=== PATIENT | female | born 1945 | race Caucasian/White ===

== ENCOUNTER 2016-05-18 10:47 | Inpatient (IN) | payer MEDICARE, OTHER ==
[~2016-05-18] VITALS: Ht 158.8 cm; Wt 50.9 kg
[~2016-05-18 10:47] MED LIST: ACCU-CHEK1 EAC1 MC; ALENDRONATE SOD35 MG PO; COZAAR100 MG PO; DIFLUCAN100 MG PO; DULCOLAX5 MG PO; GLUCOPHAGE500 MG PO; HUMALOG100 UNIT/1 SQ; HYDROCODON-ACE1 EAC6 PO; ISOSORBIDE MONO60 MG PO; JANUVIA100 MG PO; LEVAQUIN500 MG PO; LEVEMIR100 UNIT/1 SQ; LYRICA50 MG PO; NEURONTIN400 MG PO; PAXIL20 MG PO; PEPCID20 MG PO; ROBAXIN500 MG PO; SULINDAC150 MG PO; SYNTHROID50 MCG PO; ZOCOR20 MG PO
[2016-05-18 11:17] LABS: BASO % 0.3 % (0.1-1.2); EOS # 0.1 10_X3_uL (0.0-0.4); EOS % 0.5 % (0.7-5.8); GRAN # 8.7 10_X3_uL (1.6-6.1); GRAN % 75.7 % (34.0-71.1); HEMATOCRIT 44.7 % (34-45); HEMOGLOBIN 14.7 g/dL (11.2-15.7); LYMPH # 1.8 10_X3_uL (1.2-3.7); LYMPH % 15.4 % (19.3-51.7); MEAN CORPUSCULAR HEMOGLOBIN 29.5 pg (27.0-33.0); MEAN CORPUSCULAR HGB CONC 32.9 g/dL (32.0-36.0); MEAN CORPUSCULAR VOLUME 89.6 fL (79-95); MEAN PLATELET VOLUME 9.1 fl (7.5-11.5); MONO # 0.9 10_X3_uL (0.2-0.9); MONO % 8.1 % (4.7-12.5); PLATELET COUNT 328 x10_3/uL (182-369); RED BLOOD COUNT 4.99 x10_6/uL (3.9-5.2); RED CELL DISTRIBUTION WIDTH 14.6 % (11.7-14.4); WHITE BLOOD COUNT 11.5 x10_3/uL (4.0-10.0)
[2016-05-18 11:37] LABS: ALBUMIN 4.1 gm/dL (3.4-5.0); ALKALINE PHOSPHATASE 72 U/L (50-136); ALT/SGPT 10 U/L (3.5-33.9); AST/SGOT 21 U/L (7.04-26.96); BILIRUBIN,TOTAL 0.36 mg/dL (0.0-1.0); BLOOD UREA NITROGEN 18 mg/dL (7-18); CALCIUM 9.3 mg/dL (8.7-10.7); CARBON DIOXIDE 25 mmol/L (21-32); CREATININE 0.6 mg/dL (0.6-1.3); GLUCOSE,RANDOM 126 mg/dL (70-99); SODIUM 137 mmol/L (136-145); TOTAL PROTEIN 7.9 gm/dL (6.4-8.2)
[2016-05-18 11:41] LABS: POTASSIUM 4.2 mmol/L (3.5-5.1)
[2016-05-18 17:49] LABS: CKMB 3.3 ng/ml (0.0-5.0)
[2016-05-18 18:15] LABS: TROP-I < 0.30 NG/ML (0.00-0.30)
[2016-05-18 23:49] LABS: CKMB 3.2 ng/ml (0.0-5.0)
[2016-05-18 23:50] LABS: TROP-I < 0.30 NG/ML (0.00-0.30)
[2016-05-19 07:55] LABS: AHDL CHOLESTEROL 56 mg/dL (>40); ALKALINE PHOSPHATASE 71 U/L (50-136); ALT/SGPT 8 U/L (3.5-33.9); AST/SGOT 15 U/L (7.04-26.96); BILIRUBIN,TOTAL 0.48 mg/dL (0.0-1.0); BLOOD UREA NITROGEN 19 mg/dL (7-18); CARBON DIOXIDE 23 mmol/L (21-32); CHOLESTEROL 201 mg/dL (0-200); CREATININE 0.6 mg/dL (0.6-1.3); GLUCOSE,RANDOM 269 mg/dL (70-99); LDL CHOLESTEROL 136 mg/dL (0-99); POTASSIUM 4.3 mmol/L (3.5-5.1); SODIUM 138 mmol/L (136-145); TOTAL PROTEIN 7.7 gm/dL (6.4-8.2); TRIGLYCERIDES 67 mg/dL (30-200)
[2016-05-20 07:00] LABS: HEMATOCRIT 40.3 % (34-45); HEMOGLOBIN 13.3 g/dL (11.2-15.7); MEAN CORPUSCULAR HEMOGLOBIN 29.5 pg (27.0-33.0); MEAN CORPUSCULAR VOLUME 89.4 fL (79-95); RED BLOOD COUNT 4.51 x10_6/uL (3.9-5.2); RED CELL DISTRIBUTION WIDTH 14.4 % (11.7-14.4); WHITE BLOOD COUNT 14.9 x10_3/uL (4.0-10.0)
[2016-05-20 07:16] LABS: ALBUMIN 3.9 gm/dL (3.4-5.0); ALKALINE PHOSPHATASE 62 U/L (50-136); ALT/SGPT 8 U/L (3.5-33.9); AST/SGOT 11 U/L (7.04-26.96); CARBON DIOXIDE 23 mmol/L (21-32); CREATININE 0.7 mg/dL (0.6-1.3); GLUCOSE,RANDOM 214 mg/dL (70-99); SODIUM 138 mmol/L (136-145); TOTAL PROTEIN 7.5 gm/dL (6.4-8.2)
[2016-05-20 07:17] LABS: BLOOD UREA NITROGEN 24 mg/dL (7-18)
[2016-05-21 07:45] LABS: HEMATOCRIT 38.4 % (34-45); HEMOGLOBIN 12.1 g/dL (11.2-15.7); MEAN CORPUSCULAR HEMOGLOBIN 28.6 pg (27.0-33.0); MEAN CORPUSCULAR HGB CONC 31.5 g/dL (32.0-36.0); MEAN CORPUSCULAR VOLUME 90.8 fL (79-95); RED BLOOD COUNT 4.23 x10_6/uL (3.9-5.2); RED CELL DISTRIBUTION WIDTH 14.7 % (11.7-14.4); WHITE BLOOD COUNT 14.1 x10_3/uL (4.0-10.0)
[2016-05-21 07:57] LABS: POTASSIUM 4.6 mmol/L (3.5-5.1)
== END 2016-05-21 13:36 | disposition home or self-care (01) | DRG 419 ==
LOC: ER 10:47 → MS 12:22 → UNDODEPER 05-21 13:45
PROVIDERS: General Practice; ADMIT Family Medicine
PROC: 0FT44ZZ Resection of Gallbladder, Percutaneous Endoscopic Approach (ICD-10-PCS; principal; 2016-05-20)
DX: K80.12 Calculus of gallbladder with acute and chronic cholecystitis without obstruction (principal); J20.9 Acute bronchitis, unspecified; R07.9 Chest pain, unspecified; I10 Essential (primary) hypertension; E11.40 Type 2 diabetes mellitus with diabetic neuropathy, unspecified; R11.10 Vomiting, unspecified; R19.7 Diarrhea, unspecified; K52.9 Noninfective gastroenteritis and colitis, unspecified; I25.10 Atherosclerotic heart disease of native coronary artery without angina pectoris; I48.91 Unspecified atrial fibrillation; F41.9 Anxiety disorder, unspecified; E03.9 Hypothyroidism, unspecified; E89.0 Postprocedural hypothyroidism; F32.9 Major depressive disorder, single episode, unspecified; Z85.3 Personal history of malignant neoplasm of breast; Z79.4 Long term (current) use of insulin; Z79.891 Long term (current) use of opiate analgesic; Z79.899 Other long term (current) drug therapy; Z88.0 Allergy status to penicillin; Z91.041 Radiographic dye allergy status; Z95.5 Presence of coronary angioplasty implant and graft
CPT/HCPCS: 36415; 47562; 71010; 71250; 80048; 80053; 80061; 82553; 82962; 83036; 83605; 85025; 85379; 87040; 87070; 87205; 87400; 93005; 93041; 96361; 96365; 96375; 99070; 99284; 99285-25; J2704; J2710; J2930; J7635

== ENCOUNTER 2016-05-18 10:47 | Emergency (ER) | payer MEDICARE, OTHER | END 2016-05-18 12:22 | disposition other institution (70) | LOC: ER 10:47 | DX: J18.9 Pneumonia, unspecified organism (principal); I48.2 Chronic atrial fibrillation; K81.9 Cholecystitis, unspecified; R11.2 Nausea with vomiting, unspecified; R05 Cough; R53.81 Other malaise; R53.83 Other fatigue; R00.0 Tachycardia, unspecified; E11.9 Type 2 diabetes mellitus without complications; I25.10 Atherosclerotic heart disease of native coronary artery without angina pectoris; Z95.5 Presence of coronary angioplasty implant and graft; F17.210 Nicotine dependence, cigarettes, uncomplicated; Z79.4 Long term (current) use of insulin; Z79.899 Other long term (current) drug therapy; Z88.0 Allergy status to penicillin; Z91.041 Radiographic dye allergy status | CPT/HCPCS: 99284; 99285-25 ==

== ENCOUNTER 2016-08-03 19:20 | Emergency (ER) | payer MEDICARE, OTHER ==
[2016-08-03 20:18] LABS: BASO % 0.3 % (0.1-1.2); EOS # 0.1 10_X3_uL (0.0-0.4); EOS % 0.5 % (0.7-5.8); GRAN # 11.1 10_X3_uL (1.6-6.1); GRAN % 73.7 % (34.0-71.1); HEMATOCRIT 40.7 % (34-45); HEMOGLOBIN 13.6 g/dL (11.2-15.7); LYMPH # 2.4 10_X3_uL (1.2-3.7); LYMPH % 16.2 % (19.3-51.7); MEAN CORPUSCULAR HEMOGLOBIN 28.9 pg (27.0-33.0); MEAN CORPUSCULAR HGB CONC 33.4 g/dL (32.0-36.0); MEAN CORPUSCULAR VOLUME 86.4 fL (79-95); MEAN PLATELET VOLUME 9.3 fl (7.5-11.5); MONO # 1.4 10_X3_uL (0.2-0.9); MONO % 9.3 % (4.7-12.5); PLATELET COUNT 279 x10_3/uL (182-369); RED BLOOD COUNT 4.71 x10_6/uL (3.9-5.2); RED CELL DISTRIBUTION WIDTH 14.8 % (11.7-14.4)
[2016-08-03 20:35] LABS: BLOOD UREA NITROGEN 10 mg/dL (7-18); CALCIUM 8.5 mg/dL (8.7-10.7); CARBON DIOXIDE 20 mmol/L (21-32); CREATININE 0.6 mg/dL (0.6-1.3); GLUCOSE,RANDOM 131 mg/dL (70-99); POTASSIUM 4.2 mmol/L (3.5-5.1); SODIUM 138 mmol/L (136-145)
== END 2016-08-03 22:30 | disposition short-term general hospital (02) ==
LOC: ER 19:20
PROVIDERS: General Practice
DX: I63.9 Cerebral infarction, unspecified (principal); I73.9 Peripheral vascular disease, unspecified; I48.91 Unspecified atrial fibrillation; I25.10 Atherosclerotic heart disease of native coronary artery without angina pectoris; I10 Essential (primary) hypertension; G89.4 Chronic pain syndrome; E11.9 Type 2 diabetes mellitus without complications; F32.9 Major depressive disorder, single episode, unspecified; R29.810 Facial weakness; Z88.0 Allergy status to penicillin; Z88.2 Allergy status to sulfonamides; Z91.041 Radiographic dye allergy status; Z79.899 Other long term (current) drug therapy; Z79.4 Long term (current) use of insulin; Z79.891 Long term (current) use of opiate analgesic
CPT/HCPCS: 36415; 70450; 80048; 82962; 85025; 93005; 96374; 99284; 99285-25; G0328-QW